=== PATIENT | male | born 1955 | race Caucasian/White ===

== ENCOUNTER 2016-08-27 17:52 | Observation (INO) | payer BC ==
[~2016-08-27] VITALS: Ht 185.4 cm; Wt 77.3 kg
[~2016-08-27 17:52] MED LIST: ALIS1TAB2; ESZO2TAB34
[2016-08-27] MEDS ORDERED: ASPIRIN 81 MG TABLET CHEW PO ONE (19:00)
[2016-08-27 19:28] LABS: BLOOD UREA NITROGEN 16 mg/dL (7-18)
[2016-08-27 19:33] LABS: IS PT STATUS REG ER OR PRE ER? YES
[2016-08-27] MEDS ORDERED: ASPIRIN 81 MG TABLET CHEW ONE (19:54)
[2016-08-27] MEDS ORDERED: ATOR20TA9 PO (20:04)
[2016-08-27] MEDS ORDERED: ESZO3TAB9 PO (20:04)
[2016-08-27] MEDS ORDERED: ASPI-650 PO (20:04)
[2016-08-27 22:44] VITALS: BP 129/72
[2016-08-28] MEDS ORDERED: ACETAMINOPHEN 325 MG TABLET PO PRN
[2016-08-28] MEDS ORDERED: morphine SULFATE 10 MG/ML, 1ML IV PRN
[2016-08-28] MEDS ORDERED: NITROGLYCERIN 0.4 MG/SPRAY SL PRN
[2016-08-28] MEDS ORDERED: TEMPLATE NON-FORMULARY MED. (Eszopiclone** (Lunesta**) 3 MG) HOMEMEDPO SCH
[2016-08-28] MEDS ORDERED: NITROGLYCERIN 0.4 MG BOTTLE (25 TABS) SL PRN
[2016-08-28] MEDS ORDERED: ZOLPIDEM 5MG TABLET PO PRN (01:00)
[2016-08-28 01:30] VITALS: BP 116/71
[2016-08-28 02:02] LABS: IS PT STATUS REG ER OR PRE ER? NO
[2016-08-28] MEDS ORDERED: ASPIRIN 325 MG TABLET EC PO SCH ×2 (06:00→09:00)
[2016-08-28 07:46] LABS: IS PT STATUS REG ER OR PRE ER? NO
[2016-08-28 08:40] VITALS: BP 122/81
[2016-08-28] MEDS ORDERED: SODIUM CHLORIDE FLUSH 10ML SYR IVF SCH (09:00)
[2016-08-28] MEDS ORDERED: REGADENOSON 0.4 MG/5 ML SYRINGE ONE (12:55)
[2016-08-28 13:24] VITALS: BP 126/73
== END 2016-08-28 17:10 | disposition home or self-care (01) ==
LOC: ED 19:39 → EDIP 21:19 → INTOOBSV 21:19 → 5SO 22:40
PROVIDERS: ADMIT Internal Medicine; ATTEND Internal Medicine
DX: R07.89 Other chest pain (principal); E78.00 Pure hypercholesterolemia, unspecified; E78.5 Hyperlipidemia, unspecified; F41.9 Anxiety disorder, unspecified; G62.9 Polyneuropathy, unspecified; M19.90 Unspecified osteoarthritis, unspecified site; R93.1 Abnormal findings on diagnostic imaging of heart and coronary circulation
CPT/HCPCS: 36415; 71010; 78452; 80048; 80061; 82040; 83880; 84484; 85025; 93005; 93017; 99285; A9502; C9898; G0378; J2785